=== PATIENT | male | born 1975 | race Caucasian/White ===

== ENCOUNTER 2016-05-30 18:36 | Emergency (ER) | payer OTHER ==
[~2016-05-30] VITALS: Ht 167.6 cm; Wt 99.8 kg
[~2016-05-30 18:36] MED LIST: AMOXICILLIN 50500 M1 PO; CITRATE OF MAG296 ML PO; CLARITIN10 MG; CORTISPORIN OTI10 M2 OTIC; FLONASE 0.05%50 MCG NASAL; IBUPROFEN 200200 M1 PO; NOHOMEMEDICATIONS; NORCO 5-325 TA1 EACH PO; ZANTAC 150MG T150 MG PO
[2016-05-30] MEDS ORDERED: ZANTAC 150MG T150 MG PO (19:04)
[2016-05-30 19:24] LABS: ABSOLUTE NEUTROPHILS 2.8 thou/uL (1.4-8.2); BASOPHILS 0.6 % (0.0-2.0); EOSINOPHILS 3.7 % (0.0-3.0); HEMATOCRIT 39.5 % (42.0-52.0); HEMOGLOBIN 13.3 gm/dL (14.0-18.0); LYMPHOCYTES 48.8 % (24.0-44.0); MANUAL DIFF NO; MCH 31.8 pg (26.0-34.0); MCHC 33.8 g/dL (28.0-37.0); MCV 94.3 fL (80.0-100.0); MONOCYTES 9.3 % (1.0-8.0); PLATELET COUNT 316 thou/uL (150-400); POLYS 37.6 % (36.0-66.0); RBC 4.19 mil/uL (4.50-6.00); RDW 13.1 % (10.5-14.5); WBC 7.5 thou/uL (4.0-11.0)
[2016-05-30 19:35] LABS: ANION GAP 11 mmol/L (7-16); BUN 15 mg/dL (7-18); CALCIUM 8.9 mg/dL (8.5-10.1); CHLORIDE 106 mmol/L (98-107); CO2 24 mmol/L (21-32); CREATININE 0.9 mg/dL (0.6-1.3); GLUCOSE 106 mg/dL (70-99); POTASSIUM 3.7 mmol/L (3.5-5.1); SODIUM 141 mmol/L (136-145)
[2016-05-30 19:39] LABS: ALBUMIN 4.1 g/dL (3.4-5.0); ALKALINE PHOSPHATASE 61 U/L (46-116); DIRECT BILIRUBIN < 0.1 mg/dL (<0.1-0.3); SGOT 17 U/L (15-37); SGPT 40 U/L (30-65); TOTAL BILIRUBIN 0.2 mg/dL (<0.1-1.0); TOTAL PROTEIN 7.6 g/dL (6.4-8.2)
[2016-05-30] MEDS ORDERED: COLACE100 MG PO (20:23)
[2016-05-30 20:37] VITALS: BP 116/76
== END 2016-05-30 20:38 | disposition home or self-care (01) ==
LOC: ER 18:36
PROVIDERS: Nurse Practitioner
DX: K59.00 Constipation, unspecified (principal); Z88.6 Allergy status to analgesic agent

== ENCOUNTER 2017-09-01 18:24 | Emergency (ER) | payer OTHER ==
[~2017-09-01] VITALS: Ht 172.7 cm; Wt 104.3 kg
[~2017-09-01 18:24] MED LIST changes: +COLACE100 MG PO
[2017-09-01 18:30] VITALS: BP 130/87
[2017-09-01] MEDS ORDERED: CIPRO500 MG PO (19:12)
== END 2017-09-01 19:13 | disposition home or self-care (01) ==
LOC: ER 18:24
DX: S51.832A Puncture wound without foreign body of left forearm, initial encounter (principal); Z23 Encounter for immunization; Z88.6 Allergy status to analgesic agent; W29.4XXA Contact with nail gun, initial encounter; Y92.89 Other specified places as the place of occurrence of the external cause; Y93.89 Activity, other specified; Y99.8 Other external cause status

== ENCOUNTER 2017-11-27 07:40 | Emergency (ER) | payer OTHER ==
[~2017-11-27] VITALS: Ht 167.6 cm; Wt 104.3 kg
--- NOTE | ~2017-11-27 | EKG ---
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
--- NOTE | ~2017-11-27 | EKG ---
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1975 Requested By: Tatianna Yanez Order Number: [id number] MD: Raymundo Mccormick Measurements Intervals Marshall Rate: 60 P: 34 SC: 152 QRS: 37 QRSD: 104 T: -6 QT: 390 QTc: 390 Interpretive Statements Sinus rhythm Probable left ventricular hypertrophy Probable inferior infarct, age indeterminate No previous ECG available for comparison Electronically Signed On 11-29-2017 17:26:33 CDT by Raymundo Mccormick [email or web address] <ELECTRONICALLY SIGNED> By: Raymundo Mccormick MD 11/29/17 1726 D: 09/844 4 Raymundo Mccormick MD /KARI
[~2017-11-27 07:40] MED LIST changes: +CIPRO500 MG PO
[2017-11-27 08:02] LABS: HEMATOCRIT 39.4 % (42.0-52.0); HEMOGLOBIN 13.9 gm/dL (14.0-18.0); MCH 33.1 pg (26.0-34.0); MCHC 35.2 g/dL (28.0-37.0); MCV 94.2 fL (80.0-100.0); RBC 4.18 mil/uL (4.50-6.00); RDW 13.1 % (10.5-14.5); WBC 7.8 thou/uL (4.0-11.0)
[2017-11-27 08:05] LABS: URINE BILIRUBIN NEGATIVE (Negative); URINE BLOOD 3+ (Negative); URINE CLARITY CLEAR; URINE COLOR YELLOW; URINE GLUCOSE-RANDOM* NEGATIVE (Negative); URINE KETONES NEGATIVE (Negative); URINE LEUKOCYTES-REFLEX NEGATIVE (Negative); URINE NITRITE-REFLEX NEGATIVE (Negative); URINE PROTEIN (DIPSTICK) NEGATIVE (Negative); URINE SPECIFIC GRAVITY >= 1.030 (1.005-1.035); URINE UROBILINOGEN 0.2 E.U./dl (0.2-1.0)
[2017-11-27 08:16] LABS: ANION GAP 10 mmol/L (7-16); BUN 15 mg/dL (7-18); CALCIUM 9.1 mg/dL (8.5-10.1); CHLORIDE 104 mmol/L (98-107); CO2 25 mmol/L (21-32); CREATININE 1.2 mg/dL (0.7-1.3); GLUCOSE 116 mg/dL (74-106); POTASSIUM 3.7 mmol/L (3.5-5.1); SODIUM 139 mmol/L (136-145)
[2017-11-27 08:17] LABS: BACTERIA-REFLEX None Seen /HPF (None Seen); MUCUS >6 Heavy strn/LPF (None Seen); SQUAMOUS 0-3 Few /LPF (0-3); URINE WBC-REFLEX None Seen /HPF (0-5)
[2017-11-27 08:18] LABS: AMORPHOUS URATES Few /LPF (None Seen); CASTS None Seen /LPF (None Seen)
[2017-11-27 08:24] LABS: ALBUMIN 4.2 g/dL (3.4-5.0); LIPASE 85 U/L (73-393); SGOT 22 U/L (15-37); SGPT 44 U/L (30-65); TOTAL BILIRUBIN 0.4 mg/dL (<0.1-1.0); TOTAL PROTEIN 8.2 g/dL (6.4-8.2); TROPONIN-I <0.06 ng/mL (<0.06)
[2017-11-27] MEDS ORDERED: NORCO 5-325 TA1 EACH PO (11:33)
[2017-11-27] MEDS ORDERED: TORADOL 10 MG T10 MG PO (11:33)
[2017-11-27 11:37] VITALS: BP 119/72
== END 2017-11-27 11:43 | disposition home or self-care (01) ==
LOC: ER 07:40
PROVIDERS: Student in an Organized Health Care Education/Training Program
DX: N20.0 Calculus of kidney (principal)

== ENCOUNTER 2020-01-19 21:02 | Emergency (ER) | payer OTHER ==
[~2020-01-19] VITALS: Ht 170.2 cm; Wt 104.3 kg
[~2020-01-19 21:02] MED LIST changes: +TORADOL 10 MG T10 MG PO
[2020-01-19] MEDS ORDERED: CLARITIN10 M3 PO (21:50)
[2020-01-19] MEDS ORDERED: MEDROLDOSEPACK PO (23:30)
[2020-01-20 00:18] VITALS: BP 157/79
== END 2020-01-20 00:18 | disposition home or self-care (01) ==
LOC: ER 21:02
DX: L25.9 Unspecified contact dermatitis, unspecified cause (principal); Z79.899 Other long term (current) drug therapy; Z88.8 Allergy status to other drugs, medicaments and biological substances